=== PATIENT | female | born 1955 | race Caucasian/White ===

== ENCOUNTER 2025-03-04 11:46 | Emergency (ER) | payer BC, SELFPAY ==
[2025-03-04 11:48] VITALS: BP 119/55
[2025-03-04 13:12] VITALS: BMI 27.5
--- NOTE | 2025-03-04 14:03 | ED.GENMED ---
History of Present Illness
General
Chief Complaint: DVT/Possible Blood Clot
Source: patient and family
Exam Limitations: none
Time Seen by Provider: 03/04/25 12:53
History of Present Illness
History of Present Illness:
Patient concerned with swelling and pain of the left knee. Knee replacement 2 weeks ago. Earlier they felt it was slightly red and swollen. They feel this is improved now. No calf pain. No chest pain or shortness of breath.
Past History
Past History
ED Past Surgical History: Cholecystectomy, Orthopedic, Tonsilectomy and Other (Intestinal surgery)
Review of Systems
Review of Systems
All Other Systems: Not applicable
Constitutional: Denies fever or chills
Phy Exam
Physical Exam
Physical Exam:
General: Nontoxic appearing in no distress
Skin: Warm and dry, no rash
Neuro: Alert, nontoxic, grossly nonfocal
Psychiatric: Good eye contact and appropriate
Musculoskeletal: Well-healing vertical incision to the left knee. No open wound no drainage no unusual erythema. Very minimal warmth. Calf nontender. Small areas of ecchymosis to the medial thigh and lower calf.
Course
Orders/Labs/Results
Orders:
Orders
03/04/25 12:56
US Periph Venous LOWER Ext LT Urgent
Comment:
Reason For Exam: Recent knee replacement/swelling
Vital Signs
Initial and Last Documented VS:
Initial Vital Signs
Temp Pulse Resp BP Pulse Ox
97.2 F 88 15 119/55 96
03/04/25 11:48 03/04/25 11:48 03/04/25 11:48 03/04/25 11:48 03/04/25 11:48
Last Documented Vital Signs
Temp Pulse Resp BP Pulse Ox
97.2 F 61 17 119/55 96
03/04/25 11:48 03/04/25 13:15 03/04/25 13:15 03/04/25 11:48 03/04/25 14:06
MDM/Problems Addressed
Differential Diagnosis Includes:
Very low suspicion for DVT. Ultrasound negative. As for any infectious issue the knee is actually healing well. There is mild inflammatory changes but no significant warmth no drainage no severe erythema no systemic symptoms. Would not start
oral antibiotics. Outpatient observation
*Radiology
Radiology exam reviewed: radiology read reviewed (Small Nolen's cyst)
*Pulse Oximetry
SaO2: 96
Oxygen Mode of Delivery: Room air
Patient hypoxic: no
*Critical Care Note
Total Time (30-74mins, 75-104mins- exclusive of procedures): Not Applicable
ED Attending Note
-
Portions of this chart may have been created with voice recognition software.� Occasional wrong word or��sound alike� substitutions may have occurred due to the inherent limitations of voice recognition software.
Discharge Plan
Departure
Patient Disposition: Home (Routine Discharge)
Date of Disposition: 03/04/25
Time of Disposition: 14:19
Patient with high blood pressure during this ER visit?: No
Discharge Problem:
Left leg swelling, Recent knee replacement
Instructions: Nolen's Cyst (DC)
Prescriptions:
No Action
atorvastatin 40 mg Tablet
40 mg PO DAILY
tramadol 50 mg Tablet
50 mg PO BIDPRN PRN (Reason: mild pain)
acetaminophen [Tylenol Extra Strength] 500 mg Tablet
1,000 mg PO QID PRN (Reason: mild pain)
folic acid 1 mg Tablet
1 mg PO DAILY
loratadine [Claritin] 10 mg Tablet
10 mg PO DAILY PRN (Reason: allergies)
oxycodone 5 mg Tablet
5 mg PO Q4HPRN PRN (Reason: mild pain)
oxycodone 5 mg Tablet
10 mg PO Q4HPRN PRN (Reason: severe pain)
Xarelto 10 mg Tablet
10 mg PO DAILY
Referrals:
Timothy Damian, [Family Provider, Family Practice] - Follow up in 2-3 days
Activity Restrictions/Additional Instructions:
Follow-up closely with your orthopedist return or get rechecked sooner with increased redness increased swelling drainage fever
Increased pain or any other concerning symptoms
Interventions
Interventions:
*Risk Screen - Suicide Last Done: 03/04/25 11:48
*General Assessment Last Done: 03/04/25 11:48
*Neglect/Abuse Screening Last Done: 03/04/25 11:48
*ED COVID-19 Vaccine History Last Done: 03/04/25 11:48
ED- Cardiac Assessment Last Done: 03/04/25 13:06
ED- Pulmonary Assessment Last Done: 03/04/25 13:06
ED-Peripheral Vascular Assessment Last Done: 03/04/25 13:06
ED-Skin Assessment Last Done: 03/04/25 13:06
Discharge Date and Time
Print Language: [id number]
== END 2025-03-04 14:43 | disposition home or self-care (01) ==
LOC: EMR 11:46
PROVIDERS: EMERGENCY PHYSICIAN Emergency Medicine; FAMILY PHYSICIAN Family Medicine
DX: R22.42 Localized swelling, mass and lump, left lower limb (principal); Z96.652 Presence of left artificial knee joint
CPT/HCPCS: 99284; 93971